=== PATIENT | female | born 1990 | race Two or more races ===

== ENCOUNTER 2023-05-25 04:56 | Observation (INO) | payer OTHER, SELFPAY ==
--- NOTE | ~2023-05-25 | US_ITS ---
US OB limited DATE: 05/25/2023 07:39 INDICATION: Amniotic fluid index measurement. Placental location. TECHNIQUE: Real-time imaging and Doppler analysis COMPARISON: None FINDINGS: Live servin intrauterine gestation, fetus in longitudinal lie, vertex presentation. Antral fundal placenta. heart rate of 157 bpm. Fetus was active during the examination. Amniotic fluid index measures 6.7 cm, low. 5th percentile WILFREDO is 7.7 cm, 95th percentile WILFREDO 24.9 cm. IMPRESSION: Amniotic fluid index measures 6.7 cm, below 5th percentile WILFREDO Anterolateral fundal placenta Vertex presentation Reviewed, dictated and finalized at [facility]. Reviewed, dictated and finalized at location [facility].
--- NOTE | 2023-05-25 05:50 | OBADM ---
This patient, Michelle Silver, admitted to the OB room [facility] for observation. Patient/family oriented to hospital policies and general routines including ID bracelet, bed and alarms, visiting hours, pain management, procedures, bathroom and other care routines, personal items, smoking policy, room service/diet, and visiting hours. Patient/Family are encouraged to report perceived risks to care and to ask questions if they do not understand what they are told or what they should do.
[2023-05-25 05:53] VITALS: BP 117/55; PULSE 75
[2023-05-25 06:11] VITALS: BMI 31.2
--- NOTE | 2023-05-25 08:21 | PC.NURSE ---
Dr Avelar updated on awaiting US results and ROM plus negative at this point. Will be over to see patient in a little while.
--- NOTE | 2023-05-25 09:12 | PM.OBTRLD ---
OB - Triage/Final Diagnosis Visit Information Date of evaluation: 05/25/23 Reason for evaluation: other ( bleeding) Comments/Additional reasons for admission: I have assessed the risk for this patient, Michelle Silver, and determined that she would benefit from observation care. Evaluation Vital signs: Vital Signs - 24 hr 05/25/23 05:53 Pulse Rate 75 Blood Pressure 117/55 L
--- NOTE | 2023-05-25 09:18 | PC.NURSE ---
SVE performed, cervix closed thick and high. Greenish thick discharge noted. No blood noted on glove. No bleeding noted at all.
--- NOTE | 2023-05-25 09:55 | PC.NURSE ---
Dr Avelar here to see patient, Plan of care discussed and patient and spouse reassured. Discussed follow up care with Primary MD at [facility]. Ok to dc home with Labor precautions.
== END 2023-05-25 10:09 | disposition home or self-care (01) ==
PROVIDERS: Admitting Provider Obstetrics & Gynecology; Visit Provider Obstetrics & Gynecology
DX: O46.93 Antepartum hemorrhage, unspecified, third trimester (principal); Z3A.36 36 weeks gestation of pregnancy
CPT/HCPCS: 76815; G0378; G0379